=== PATIENT | female | born 1980 | race Caucasian/White ===

== ENCOUNTER 2017-01-21 21:59 | Emergency (ER) | payer MEDICARE | END 2017-01-22 05:55 | disposition home or self-care (01) | LOC: ER1 21:59 | DX: S39.012A Strain of muscle, fascia and tendon of lower back, initial encounter (principal); S80.02XA Contusion of left knee, initial encounter; S80.01XA Contusion of right knee, initial encounter; Z87.891 Personal history of nicotine dependence; W01.0XXA Fall on same level from slipping, tripping and stumbling without subsequent striking against object, initial encounter; Y92.89 Other specified places as the place of occurrence of the external cause; Z88.8 Allergy status to other drugs, medicaments and biological substances; Z79.899 Other long term (current) drug therapy | CPT/HCPCS: 72100; 73564; 84703; 99284 ==

== ENCOUNTER 2017-03-02 12:44 | Emergency (ER) | payer MEDICARE ==
[2017-03-02 13:50] LABS: HEMOGLOBIN 12.2 gm/dl (12.3-15.3); RED BLOOD COUNT 4.64 M/UL (4.00-5.10)
[2017-03-02 14:58] LABS: BUN/CREATININE RATIO 9 (0-10)
== END 2017-03-03 00:25 | disposition short-term general hospital (02) ==
LOC: ER1 12:44
PROVIDERS: Emergency Medicine
DX: R56.9 Unspecified convulsions (principal); I10 Essential (primary) hypertension; E66.9 Obesity, unspecified; G89.29 Other chronic pain; M54.5 Low back pain; Z88.5 Allergy status to narcotic agent; Z88.8 Allergy status to other drugs, medicaments and biological substances; Z79.899 Other long term (current) drug therapy
CPT/HCPCS: 36415; 70450; 71010; 80053; 80307; 81001; 83690; 84703; 85025; 85610; 85730; 87086; 96365; 99285; J1953; J7030